=== PATIENT | female | born 1930 | race Caucasian/White ===

== ENCOUNTER → 2017-02-05 | Outpatient (CLI) | payer OTHER ==
[~2017-02-05] MED LIST: ACET-1256 PO; AMIO200T4 PO; ANSHCCR/ TOP; ATOR-54 PO; CALC-393 PO; DOCU100C22 PO; DONE1TAB26 PO; DORZ1SOL OPB; ERGO500037 PO; FLUO10CA48 PO; FURO-85 PO; GUAI-13 PO; IMD/2 PO; IPRASOL34 NEB; KFL250 PO; LACT1TAB4 PO; LATA0.009 OPB; LETR2TAB PO; LEVO50TA6 PO; MEMA10TA PO; METO-452 PO; METO2.5T PO; MOML PO; NUTR-7 PO; OXGN; POTA10CA28 PO; WARF-283 PO; WARF4TAB43 PO
[2017-02-05 08:54] LABS: INR 1.1 (0.9-1.1); PROTHROMBIN TIME (PATIENT) 11.3 SECONDS (9.0-12.0)
[2017-02-05 09:04] LABS: ALT/SGPT 13 U/L (12-78); BLOOD UREA NITROGEN 23 mg/dl (7-18); BUN/CREATININE RATIO 20.5 (10-20); CALCIUM 9.6 mg/dl (8.5-10.1); CARBON DIOXIDE 30 mmol/L (21-32); CHLORIDE 108 mmol/L (98-107); GLUCOSE 134 mg/dl (70-99); POTASSIUM 4.6 mmol/L (3.5-5.1); SODIUM 146 mmol/L (136-145)
[2017-02-05 09:09] LABS: ALB/GLOB RATIO 0.7 (0.9-2); ALKALINE PHOSPHATASE 73 U/L (45-117); AST/SGOT 18 U/L (15-37)
[2017-02-05 09:37] LABS: HEMATOCRIT 30.2 % (37-47); MEAN CELL VOLUME 96.5 fL (80-100); MEAN CORPUSCULAR HEMOGLOBIN 29.1 pg (25-34); MEAN CORPUSCULAR HGB CONC 30.1 g/dl (32-36); PLATELET COUNT 111 K/uL (130-400); PLT ESTIMATE DECREASED; RED BLOOD COUNT 3.13 M/uL (4.2-5.4); WHITE BLOOD COUNT 4.22 K/uL (4.8-10.8)
== END | disposition home or self-care (01) ==
LOC: C.LABSPEC 08:16
PROVIDERS: ATTEND Internal Medicine
DX: E03.9 Hypothyroidism, unspecified (principal); D64.9 Anemia, unspecified; E11.22 Type 2 diabetes mellitus with diabetic chronic kidney disease; N18.3 Chronic kidney disease, stage 3 (moderate)